=== PATIENT | female | born 1960 | race Caucasian/White ===

== ENCOUNTER 2024-01-10 10:15 | Outpatient (OUT) | payer OTHER, SELFPAY ==
--- NOTE | 2024-01-10 10:22 | MM_ITS ---
Patient Name: THAIS STONE MR#: [id number] : 1960 Exam Date: 01/10/2024 Ordering Doctor: DR JADA PERALTA M.D. RADIOLOGY REPORT PROCEDURE: MM TOMOSYNTHESIS SCREENING BI COMPARISON: MG MAMM SCREEN 3D [facility] CAD, 08/17/2021. MG MAMM SCREEN 3D [place] CAD, 09/09/2022. INDICATIONS: screening Calculator Name NCI Breast Cancer Risk Assessment Tool 5 Year Breast Cancer Risk 1.40% Lifetime Breast Cancer Risk 6.50% Personal Breast Cancer No Personal Ovarian Cancer No Treatments None Family Cancers Father with colon cancer at age 70. LOCATION: [facility] BREAST COMPOSITION: Heterogeneously dense,which may obscure small masses. FINDINGS: DIAGNOSTIC CATEGORY 2--BENIGN FINDING. NO CHANGE FROM COMPARISON. Scattered benign-appearing nodules are present. Scattered benign-appearing calcifications are present. RIGHT BREAST: No significant suspicious finding. LEFT BREAST: No significant suspicious finding. Calcification versus micro clip marker upper inner quadrant, mid breast, stable. RECOMMENDATIONS: ROUTINE MAMMOGRAM AND CLINICAL EVALUATION IN 12 MONTHS. PLEASE NOTE: A NORMAL MAMMOGRAM DOES NOT EXCLUDE THE POSSIBILITY OF BREAST CANCER. A CLINICALLY SUSPICIOUS PALPABLE LUMP SHOULD BE BIOPSIED. Dictated by: Pepe Chávez MD on 01/10/2024 at 14:20 Approved by: Pepe Chávez MD on 01/10/2024 at 14:23
== END 2024-01-10 10:16 | disposition home or self-care (01) ==
LOC: MAMMO 10:18
PROVIDERS: PCP Family Medicine; Visit Provider Family Medicine
DX: Z12.31 Encounter for screening mammogram for malignant neoplasm of breast (principal); Z80.0 Family history of malignant neoplasm of digestive organs
CPT/HCPCS: 77063; 77067